=== PATIENT | female | born 2000 | race Caucasian/White ===

== ENCOUNTER 2019-12-26 18:14 | Emergency (ER) | payer BC, OTHER ==
[~2019-12-26] VITALS: Ht 157.5 cm; Wt 72.6 kg
[~2019-12-26 18:14] MED LIST: IBUPROFEN; ZOFRAN ODT4 MG PO
[2019-12-26 20:19] VITALS: BP 112/73
== END 2019-12-26 20:20 | disposition home or self-care (01) ==
LOC: M.ERS 18:14
DX: J06.9 Acute upper respiratory infection, unspecified (principal); Z20.828 Contact with and (suspected) exposure to other viral communicable diseases; Z88.8 Allergy status to other drugs, medicaments and biological substances